=== PATIENT | male | born 1980 | race Caucasian/White ===

== ENCOUNTER 2023-04-08 09:43 | Emergency (ER) | payer SELFPAY ==
[2023-04-08] MEDS ORDERED: Metoclopramide 10 MG/2 ML SDV IVPUSH ONE (10:07)
[2023-04-08] MEDS ORDERED: Dextrose 5%-0.9% NaCl 1,000 ML IV SCH (10:15)
[2023-04-08] MEDS ORDERED: Ketorolac 30 MG/ML SDV IVPUSH SCH (10:15)
[2023-04-08] MEDS ORDERED: Acetaminophen 325 MG Tab PO ONE (10:24)
[2023-04-08 10:34] LABS: CORONAVIRUS COVID-19 NAA NEGATIVE (NEGATIVE); INFLUENZA A NAA NEGATIVE (NEGATIVE); RESPIRATORY SYNCYTIAL VIR NAA NEGATIVE (NEGATIVE)
[2023-04-08 10:35] LABS: BASOPHILS PERCENT AUTO 0.6 % (0.0-1.0); EOSINOPHILS ABSOLUTE AUTO 0.2 K/mm3 (0.0-0.4); EOSINOPHILS PERCENT AUTO 2.3 % (0.0-6.0); HEMATOCRIT 45.3 % (42.0-52.0); HEMOGLOBIN 15.2 gm/dl (14.0-18.0); IMMATURE GRAN ABSOLUTE AUTO 0.01 K/mm3 (0.00-0.05); IMMATURE GRAN PERCENT AUTO 0.1 % (0.0-0.4); LYMPHOCYTES ABSOLUTE AUTO 1.3 K/mm3 (1.0-4.8); MEAN CORPUSCULAR HEMOGLOBIN 30.3 pg (28.0-32.0); MEAN CORPUSCULAR HGB CONC 33.6 g/dl (32.0-36.0); MEAN CORPUSCULAR VOLUME 90.4 fl (83.0-99.0); MEAN PLATELET VOLUME 8.9 fl (9.4-12.4); MONOCYTES ABSOLUTE AUTO 0.5 K/mm3 (0.0-0.8); MONOCYTES PERCENT AUTO 7.7 % (0.0-8.0); NEUTROPHILS ABSOLUTE AUTO 4.8 K/mm3 (1.8-7.7); NEUTROPHILS PERCENT AUTO 70.3 % (41.0-71.0); PLATELET COUNT,PLT 246 K/mm3 (150-400); RED BLOOD CELL COUNT 5.01 M/mm3 (4.52-5.90); WHITE BLOOD CELL COUNT,WBC 6.88 K/mm3 (3.9-11.3)
[2023-04-08 10:57] LABS: A/G RATIO 1.1 (1-2); ALANINE AMINOTRANSFERASE,ALT 26 U/L (16-63); ALBUMIN 3.6 g/dl (3.4-5.0); ALKALINE PHOSPHATASE 58 U/L (46-116); ASPARTATE AMNIOTRANSFERASE,AST 22 U/L (15-37); BILIRUBIN TOTAL 0.5 mg/dL (0.2-1.0); BLOOD UREA NITROGEN,BUN 11 mg/dL (7-18); BUN/CREATININE RATIO 12.2 (14-18); C-REACTIVE PROTEIN <0.2 mg/dL (<1.0); CALCIUM 8.7 mg/dL (8.5-10.1); CARBON DIOXIDE,CO2 24 mEq/L (21-32); CHLORIDE,CL 107 mEq/L (98-107); CREATININE 0.9 mg/dL (0.7-1.3); EST CRCL DRUG DOSING (CG) 95.29 mL/min; ESTIMATED GFR 107 mL/min (>60); GLUCOSE RANDOM 117 mg/dL (70-99); MAGNESIUM 1.9 mg/dL (1.8-2.4); SODIUM,NA 141 mEq/L (136-145)
== END 2023-04-08 12:25 | disposition home or self-care (01) ==
LOC: JD.ED 09:43
DX: A08.4 Viral intestinal infection, unspecified (principal); J44.9 Chronic obstructive pulmonary disease, unspecified; F17.210 Nicotine dependence, cigarettes, uncomplicated
CPT/HCPCS: 0241U; 36415; 71045; 80053; 83605; 83735; 85025; 86140; 96361; 96374; 96375; 99284; A9270; J1885; J2765; J7042

== ENCOUNTER 2023-04-17 13:32 | Emergency (ER) | payer SELFPAY ==
[2023-04-17] MEDS: Sodium Chloride 0.9% 1,000 ML IV SCH (14:15)
[2023-04-17] MEDS: Sodium Chloride 0.9% 10 ML Syringe FLUSH PRN (14:15)
[2023-04-17 14:21] LABS: BASOPHILS ABSOLUTE AUTO 0.1 K/mm3 (0.0-0.2); BASOPHILS PERCENT AUTO 0.8 % (0.0-1.0); EOSINOPHILS PERCENT AUTO 0.3 % (0.0-6.0); HEMATOCRIT 45.1 % (42.0-52.0); HEMOGLOBIN 15.5 gm/dl (14.0-18.0); IMMATURE GRAN ABSOLUTE AUTO 0.02 K/mm3 (0.00-0.05); IMMATURE GRAN PERCENT AUTO 0.3 % (0.0-0.4); LYMPHOCYTES ABSOLUTE AUTO 1.5 K/mm3 (1.0-4.8); LYMPHOCYTES PERCENT AUTO 22.6 % (24.0-44.0); MEAN CORPUSCULAR HEMOGLOBIN 31.3 pg (28.0-32.0); MEAN CORPUSCULAR HGB CONC 34.4 g/dl (32.0-36.0); MEAN CORPUSCULAR VOLUME 91.1 fl (83.0-99.0); MEAN PLATELET VOLUME 8.6 fl (9.4-12.4); MONOCYTES ABSOLUTE AUTO 0.3 K/mm3 (0.0-0.8); MONOCYTES PERCENT AUTO 4.6 % (0.0-8.0); NEUTROPHILS ABSOLUTE AUTO 4.7 K/mm3 (1.8-7.7); NEUTROPHILS PERCENT AUTO 71.4 % (41.0-71.0); PLATELET COUNT,PLT 302 K/mm3 (150-400); RED BLOOD CELL COUNT 4.95 M/mm3 (4.52-5.90); WHITE BLOOD CELL COUNT,WBC 6.54 K/mm3 (3.9-11.3)
[2023-04-17 14:22] LABS: APPEARANCE,URINE CLEAR (Clear); BILIRUBIN,URINE NEGATIVE (Negative); COLOR,URINE LIGHT YELLOW (Yellow); GLUCOSE,URINE NEGATIVE (Negative); KETONES,URINE NEGATIVE (Negative); LEUKOCYTE ESTERASE,URINE NEGATIVE (Negative); NITRITE,URINE NEGATIVE (Negative); OCCULT BLOOD,URINE NEGATIVE (Negative); PROTEIN,URINE NEGATIVE (Negative); UROBILINOGEN,URINE 0.2 (0.2-1.0)
[2023-04-17] MEDS: Iopamidol 612 MG/ML 100 ML Bottle IVPUSH ONE (14:27)
[2023-04-17] MEDS: Sodium Chloride 0.9% 10 ML Syringe FLUSH ONE (14:27)
[2023-04-17 14:39] LABS: A/G RATIO 1.2 (1-2); ALANINE AMINOTRANSFERASE,ALT 25 U/L (16-63); ALBUMIN 4.1 g/dl (3.4-5.0); ALKALINE PHOSPHATASE 61 U/L (46-116); ANION GAP 14.9 (5-15); ASPARTATE AMNIOTRANSFERASE,AST 25 U/L (15-37); BILIRUBIN TOTAL 0.8 mg/dL (0.2-1.0); BLOOD UREA NITROGEN,BUN 12 mg/dL (7-18); C-REACTIVE PROTEIN <0.2 mg/dL (<1.0); CALCIUM 9.3 mg/dL (8.5-10.1); CARBON DIOXIDE,CO2 25 mEq/L (21-32); CHLORIDE,CL 102 mEq/L (98-107); EST CRCL DRUG DOSING (CG) 85.58 mL/min; ESTIMATED GFR 95 mL/min (>60); GLUCOSE RANDOM 99 mg/dL (70-99); POTASSIUM,K 3.9 mEq/L (3.5-5.1); PROTEIN TOTAL,TP 7.5 g/dl (6.4-8.2); SODIUM,NA 138 mEq/L (136-145)
== END 2023-04-17 15:39 | disposition home or self-care (01) ==
LOC: JD.ED 13:32
DX: R10.30 Lower abdominal pain, unspecified (principal); J44.9 Chronic obstructive pulmonary disease, unspecified; F17.210 Nicotine dependence, cigarettes, uncomplicated
CPT/HCPCS: 36415; 51798; 74177; 80053; 81003; 83735; 85025; 86140; 93005; 96360; 99284; J3490; J7030; Q9967; 93010

== ENCOUNTER 2023-04-29 08:28 | Emergency (ER) | payer SELFPAY ==
[2023-04-29 09:12] LABS: BASOPHILS PERCENT AUTO 0.3 % (0.0-1.0); EOSINOPHILS ABSOLUTE AUTO 0.2 K/mm3 (0.0-0.4); EOSINOPHILS PERCENT AUTO 1.6 % (0.0-6.0); HEMATOCRIT 42.9 % (42.0-52.0); HEMOGLOBIN 14.6 gm/dl (14.0-18.0); IMMATURE GRAN ABSOLUTE AUTO 0.06 K/mm3 (0.00-0.05); IMMATURE GRAN PERCENT AUTO 0.4 % (0.0-0.4); LYMPHOCYTES ABSOLUTE AUTO 1.2 K/mm3 (1.0-4.8); LYMPHOCYTES PERCENT AUTO 7.9 % (24.0-44.0); MEAN CORPUSCULAR HEMOGLOBIN 31.6 pg (28.0-32.0); MEAN CORPUSCULAR VOLUME 92.9 fl (83.0-99.0); MEAN PLATELET VOLUME 8.7 fl (9.4-12.4); MONOCYTES ABSOLUTE AUTO 1.2 K/mm3 (0.0-0.8); NEUTROPHILS ABSOLUTE AUTO 11.9 K/mm3 (1.8-7.7); NEUTROPHILS PERCENT AUTO 81.8 % (41.0-71.0); PLATELET COUNT,PLT 235 K/mm3 (150-400); RED BLOOD CELL COUNT 4.62 M/mm3 (4.52-5.90); WHITE BLOOD CELL COUNT,WBC 14.55 K/mm3 (3.9-11.3)
[2023-04-29] MEDS: Sodium Chloride 0.9% 1,000 ML IV SCH (09:23)
[2023-04-29] MEDS: Ondansetron 4 MG/2 ML SDV IVPUSH ONE (09:23)
[2023-04-29] MEDS: Sodium Chloride 0.9% 10 ML Syringe FLUSH PRN (09:24)
[2023-04-29 09:36] LABS: A/G RATIO 1.2 (1-2); ALBUMIN 3.7 g/dl (3.4-5.0); ANION GAP 13.4 (5-15); BILIRUBIN TOTAL 0.6 mg/dL (0.2-1.0); BUN/CREATININE RATIO 17.8 (14-18); CALCIUM 8.7 mg/dL (8.5-10.1); CREATININE 0.9 mg/dL (0.7-1.3); EST CRCL DRUG DOSING (CG) 94.43 mL/min; POTASSIUM,K 4.4 mEq/L (3.5-5.1); PROTEIN TOTAL,TP 6.9 g/dl (6.4-8.2)
[2023-04-29 10:35] LABS: APPEARANCE,URINE SLT CLOUDY (Clear); BILIRUBIN,URINE NEGATIVE (Negative); COLOR,URINE YELLOW (Yellow); GLUCOSE,URINE NEGATIVE (Negative); KETONES,URINE NEGATIVE (Negative); LEUKOCYTE ESTERASE,URINE 1+ (Negative); NITRITE,URINE POSITIVE (Negative); OCCULT BLOOD,URINE 2+ (Negative); PH,URINE 6.5 (5.0-8.0); PROTEIN,URINE 1+ (Negative); UROBILINOGEN,URINE 0.2 (0.2-1.0)
[2023-04-29 10:52] LABS: WBC CLUMPS,URINE FEW /hpf (NOT SEEN)
[2023-04-29 10:53] LABS: BACTERIA,URINE MANY /hpf (FEW); EPITHELIAL CELLS,URINE NOT SEEN /hpf (0-5); MUCUS,URINE RARE /hpf (FEW)
[2023-04-29] MEDS: Phenazopyridine 95 MG Tab PO ONE (11:22)
[2023-04-29] MEDS: cefTRIAXone 1 GM in Sodium Chloride 0.9% 100 ML IV ONE (11:23)
== END 2023-04-29 12:00 | disposition home or self-care (01) ==
LOC: JD.ED 08:28
DX: N39.0 Urinary tract infection, site not specified (principal); J44.9 Chronic obstructive pulmonary disease, unspecified; F17.210 Nicotine dependence, cigarettes, uncomplicated; Z79.899 Other long term (current) drug therapy
CPT/HCPCS: 36415; 74176; 80053; 81001; 83690; 85025; 96361; 96365; 96375; 99285; A9270; J0696; J2405; J3490; J7030

== ENCOUNTER 2023-05-03 20:00 | Emergency (ER) | payer SELFPAY ==
[2023-05-03 20:50] LABS: APPEARANCE,URINE CLEAR (Clear); BILIRUBIN,URINE NEGATIVE (Negative); COLOR,URINE YELLOW (Yellow); GLUCOSE,URINE NEGATIVE (Negative); KETONES,URINE NEGATIVE (Negative); LEUKOCYTE ESTERASE,URINE TRACE (Negative); NITRITE,URINE NEGATIVE (Negative); OCCULT BLOOD,URINE 3+ (Negative); PH,URINE 6.5 (5.0-8.0); PROTEIN,URINE 1+ (Negative); UROBILINOGEN,URINE 0.2 (0.2-1.0)
[2023-05-03 21:19] LABS: AMORPHOUS SEDIMENT,URINE RARE /hpf (NOT SEEN); BACTERIA,URINE FEW /hpf (FEW); EPITHELIAL CELLS,URINE NOT SEEN /hpf (0-5); MUCUS,URINE NOT SEEN /hpf (FEW); RBC,URINE 20-30 /hpf (0-5); WBC,URINE 0-5 /hpf (0-5)
== END 2023-05-03 22:40 | disposition home or self-care (01) ==
LOC: JD.ED 20:00
DX: T83.031A Leakage of indwelling urethral catheter, initial encounter (principal); J44.9 Chronic obstructive pulmonary disease, unspecified; F17.210 Nicotine dependence, cigarettes, uncomplicated
CPT/HCPCS: 51702; 81001; 99283

== ENCOUNTER 2023-07-03 05:45 | Emergency (ER) | payer MEDICAID ==
[2023-07-03] MEDS: Sodium Chloride 0.9% 1,000 ML IV STA (06:27)
[2023-07-03] MEDS: Ondansetron 4 MG/2 ML SDV IVPUSH ONE (06:27)
[2023-07-03] MEDS: HYDROmorphone 0.5 MG/0.5 ML Syringe IVPUSH ONE (06:27)
[2023-07-03] MEDS: Sodium Chloride 0.9% 10 ML Syringe FLUSH PRN (06:27)
[2023-07-03 06:29] LABS: BASOPHILS ABSOLUTE AUTO 0.1 K/mm3 (0.0-0.2); BASOPHILS PERCENT AUTO 0.7 % (0.0-1.0); EOSINOPHILS ABSOLUTE AUTO 0.2 K/mm3 (0.0-0.4); EOSINOPHILS PERCENT AUTO 2.2 % (0.0-6.0); HEMATOCRIT 48.3 % (42.0-52.0); HEMOGLOBIN 16.2 gm/dl (14.0-18.0); IMMATURE GRAN ABSOLUTE AUTO 0.04 K/mm3 (0.00-0.05); IMMATURE GRAN PERCENT AUTO 0.6 % (0.0-0.4); LYMPHOCYTES ABSOLUTE AUTO 1.6 K/mm3 (1.0-4.8); MEAN CORPUSCULAR HEMOGLOBIN 30.7 pg (28.0-32.0); MEAN CORPUSCULAR HGB CONC 33.5 g/dl (32.0-36.0); MEAN CORPUSCULAR VOLUME 91.7 fl (83.0-99.0); MEAN PLATELET VOLUME 8.8 fl (9.4-12.4); MONOCYTES ABSOLUTE AUTO 0.7 K/mm3 (0.0-0.8); MONOCYTES PERCENT AUTO 9.5 % (0.0-8.0); NEUTROPHILS ABSOLUTE AUTO 4.3 K/mm3 (1.8-7.7); PLATELET COUNT,PLT 325 K/mm3 (150-400); RED BLOOD CELL COUNT 5.27 M/mm3 (4.52-5.90); WHITE BLOOD CELL COUNT,WBC 6.84 K/mm3 (3.9-11.3)
[2023-07-03 06:30] LABS: APPEARANCE,URINE CLEAR (Clear); BILIRUBIN,URINE NEGATIVE (Negative); COLOR,URINE YELLOW (Yellow); GLUCOSE,URINE NEGATIVE (Negative); KETONES,URINE NEGATIVE (Negative); LEUKOCYTE ESTERASE,URINE NEGATIVE (Negative); NITRITE,URINE NEGATIVE (Negative); OCCULT BLOOD,URINE NEGATIVE (Negative); PROTEIN,URINE NEGATIVE (Negative); UROBILINOGEN,URINE 0.2 (0.2-1.0)
[2023-07-03 06:38] LABS: ALBUMIN 3.8 g/dl (3.4-5.0); ANION GAP 10.1 (5-15); BILIRUBIN TOTAL 0.4 mg/dL (0.2-1.0); CALCIUM 8.9 mg/dL (8.5-10.1); EST CRCL DRUG DOSING (CG) 95.52 mL/min; POTASSIUM,K 4.1 mEq/L (3.5-5.1); PROTEIN TOTAL,TP 7.5 g/dl (6.4-8.2)
[2023-07-03 06:39] LABS: BACTERIA,URINE NOT SEEN /hpf (FEW); EPITHELIAL CELLS,URINE NOT SEEN /hpf (0-5); MUCUS,URINE NOT SEEN /hpf (FEW); RBC,URINE 0-5 /hpf (0-5); WBC,URINE 0-5 /hpf (0-5)
[2023-07-03] MEDS: Iopamidol 612 MG/ML 100 ML Bottle IVPUSH ONE (06:42)
== END 2023-07-03 07:16 | disposition home or self-care (01) ==
LOC: JD.ED 05:45
DX: R10.31 Right lower quadrant pain (principal); J44.9 Chronic obstructive pulmonary disease, unspecified; F17.210 Nicotine dependence, cigarettes, uncomplicated; Z79.899 Other long term (current) drug therapy
CPT/HCPCS: 36415; 74177; 80053; 81001; 83690; 85025; 96374; 96375; 99284; J1170; J2405; J3490; J7030; Q9967

== ENCOUNTER 2023-07-30 09:07 | Emergency (ER) | payer MEDICAID, OTHER ==
[2023-07-30 10:05] LABS: BASOPHILS PERCENT AUTO 0.7 % (0.0-1.0); EOSINOPHILS ABSOLUTE AUTO 0.1 K/mm3 (0.0-0.4); EOSINOPHILS PERCENT AUTO 1.3 % (0.0-6.0); HEMATOCRIT 45.9 % (42.0-52.0); HEMOGLOBIN 15.9 gm/dl (14.0-18.0); IMMATURE GRAN ABSOLUTE AUTO 0.02 K/mm3 (0.00-0.05); IMMATURE GRAN PERCENT AUTO 0.3 % (0.0-0.4); LYMPHOCYTES ABSOLUTE AUTO 1.5 K/mm3 (1.0-4.8); LYMPHOCYTES PERCENT AUTO 24.9 % (24.0-44.0); MEAN CORPUSCULAR HEMOGLOBIN 30.7 pg (28.0-32.0); MEAN CORPUSCULAR HGB CONC 34.6 g/dl (32.0-36.0); MONOCYTES ABSOLUTE AUTO 0.5 K/mm3 (0.0-0.8); MONOCYTES PERCENT AUTO 8.1 % (0.0-8.0); NEUTROPHILS PERCENT AUTO 64.7 % (41.0-71.0); PLATELET COUNT,PLT 258 K/mm3 (150-400); RED BLOOD CELL COUNT 5.18 M/mm3 (4.52-5.90); WHITE BLOOD CELL COUNT,WBC 6.14 K/mm3 (3.9-11.3)
[2023-07-30 10:09] LABS: MEAN CORPUSCULAR VOLUME 88.6 fl (83.0-99.0)
[2023-07-30] MEDS: Albuterol/Ipratropium 3.0-0.5 MG/3 ML Neb Soln NEB ONE (10:18)
[2023-07-30 10:29] LABS: APPEARANCE,URINE CLEAR (Clear); BILIRUBIN,URINE NEGATIVE (Negative); COLOR,URINE YELLOW (Yellow); GLUCOSE,URINE NEGATIVE (Negative); KETONES,URINE NEGATIVE (Negative); LEUKOCYTE ESTERASE,URINE NEGATIVE (Negative); NITRITE,URINE NEGATIVE (Negative); OCCULT BLOOD,URINE NEGATIVE (Negative); PH,URINE 7.5 (5.0-8.0); PROTEIN,URINE NEGATIVE (Negative); UROBILINOGEN,URINE 0.2 (0.2-1.0)
[2023-07-30 10:48] LABS: INR 1.11; PROTHROMBIN TIME 11.8 SECONDS (9.7-12.0)
[2023-07-30 10:49] LABS: D-DIMER QUANTITATIVE 0.21 mg/L (0.19-0.50)
[2023-07-30 11:01] LABS: A/G RATIO 1.1 (1-2); ALANINE AMINOTRANSFERASE,ALT 26 U/L (16-63); ALKALINE PHOSPHATASE 74 U/L (46-116); ANION GAP 15.2 (5-15); ASPARTATE AMNIOTRANSFERASE,AST 28 U/L (15-37); BILIRUBIN TOTAL 0.5 mg/dL (0.2-1.0); BLOOD UREA NITROGEN,BUN 15 mg/dL (7-18); CALCIUM 9.5 mg/dL (8.5-10.1); CARBON DIOXIDE,CO2 24 mEq/L (21-32); CHLORIDE,CL 103 mEq/L (98-107); EST CRCL DRUG DOSING (CG) 95.22 mL/min; ESTIMATED GFR 95 mL/min (>60); GLUCOSE RANDOM 97 mg/dL (70-99); MAGNESIUM 1.9 mg/dL (1.8-2.4); PHOSPHORUS 2.3 mg/dL (2.6-4.7); POTASSIUM,K 4.2 mEq/L (3.5-5.1); PROTEIN TOTAL,TP 7.5 g/dl (6.4-8.2); SODIUM,NA 138 mEq/L (136-145)
[2023-07-30 11:07] LABS: TROPONIN I HIGH SENSITIVITY < 4 pg/mL (<=76)
[2023-07-30 11:08] LABS: CORONAVIRUS COVID-19 NAA NEGATIVE (NEGATIVE); INFLUENZA A NAA NEGATIVE (NEGATIVE); RESPIRATORY SYNCYTIAL VIR NAA NEGATIVE (NEGATIVE)
[2023-07-30] MEDS: cefTRIAXone 1 GM in Sodium Chloride 0.9% 100 ML IV ONE (11:32)
[2023-07-30] MEDS: methylPREDNISolone Sodium Succinate 125 MG/2 ML SDV IVPUSH ONE (11:32)
[2023-07-30] MEDS: Ondansetron 4 MG/2 ML SDV IVPUSH ONE (11:33)
[2023-07-30] MEDS: Ondansetron 4 MG Tab.DIS PO ONE (12:01)
== END 2023-07-30 13:42 | disposition home or self-care (01) ==
LOC: JD.ED 09:07
DX: J69.0 Pneumonitis due to inhalation of food and vomit (principal); J44.9 Chronic obstructive pulmonary disease, unspecified; F17.210 Nicotine dependence, cigarettes, uncomplicated; Z79.51 Long term (current) use of inhaled steroids; Z79.899 Other long term (current) drug therapy
CPT/HCPCS: 0241U; 36415; 71045; 80053; 81003; 83735; 83880; 84100; 84484; 85025; 85379; 85610; 93005; 94640; 96374; 96375; 99285; J0696; J2930; J3490; J7620-GY

== ENCOUNTER 2023-08-13 05:29 | Emergency (ER) | payer MEDICAID ==
[2023-08-13 05:57] LABS: BASOPHILS ABSOLUTE AUTO 0.1 K/mm3 (0.0-0.2); BASOPHILS PERCENT AUTO 0.9 % (0.0-1.0); EOSINOPHILS ABSOLUTE AUTO 0.3 K/mm3 (0.0-0.4); EOSINOPHILS PERCENT AUTO 4.7 % (0.0-6.0); HEMATOCRIT 46.9 % (42.0-52.0); HEMOGLOBIN 16.2 gm/dl (14.0-18.0); IMMATURE GRAN ABSOLUTE AUTO 0.03 K/mm3 (0.00-0.05); IMMATURE GRAN PERCENT AUTO 0.4 % (0.0-0.4); LYMPHOCYTES ABSOLUTE AUTO 1.8 K/mm3 (1.0-4.8); LYMPHOCYTES PERCENT AUTO 25.8 % (24.0-44.0); MEAN CORPUSCULAR HEMOGLOBIN 30.8 pg (28.0-32.0); MEAN CORPUSCULAR HGB CONC 34.5 g/dl (32.0-36.0); MEAN CORPUSCULAR VOLUME 89.2 fl (83.0-99.0); MEAN PLATELET VOLUME 9.2 fl (9.4-12.4); MONOCYTES ABSOLUTE AUTO 0.4 K/mm3 (0.0-0.8); MONOCYTES PERCENT AUTO 5.9 % (0.0-8.0); NEUTROPHILS ABSOLUTE AUTO 4.4 K/mm3 (1.8-7.7); NEUTROPHILS PERCENT AUTO 62.3 % (41.0-71.0); PLATELET COUNT,PLT 262 K/mm3 (150-400); RED BLOOD CELL COUNT 5.26 M/mm3 (4.52-5.90); WHITE BLOOD CELL COUNT,WBC 6.98 K/mm3 (3.9-11.3)
[2023-08-13] MEDS: Alum Hydrox/Mag Hydrox/Simeth 30 ML, Lidocaine 2% 15 ML PO ONE (06:00)
[2023-08-13] MEDS: Ondansetron 4 MG Tab.DIS PO ONE (06:01)
[2023-08-13 06:23] LABS: INR 1.07; PROTHROMBIN TIME 11.4 SECONDS (9.7-12.0)
[2023-08-13 06:25] LABS: PTT,PARTIAL THROMBOPLSTIN TIME 29.4 SECONDS (21.7-31.4)
[2023-08-13 06:28] LABS: D-DIMER QUANTITATIVE < 0.19 mg/L (0.19-0.50)
[2023-08-13 06:33] LABS: A/G RATIO 1.2 (1-2); ALBUMIN 3.8 g/dl (3.4-5.0); ANION GAP 14.7 (5-15); BILIRUBIN TOTAL 0.4 mg/dL (0.2-1.0); BUN/CREATININE RATIO 10.8 (14-18); CALCIUM 8.8 mg/dL (8.5-10.1); CREATININE 1.2 mg/dL (0.7-1.3); EST CRCL DRUG DOSING (CG) 79.8 mL/min; POTASSIUM,K 3.7 mEq/L (3.5-5.1); PROTEIN TOTAL,TP 7.1 g/dl (6.4-8.2)
== END 2023-08-13 06:52 | disposition home or self-care (01) ==
LOC: JD.ED 05:29
DX: R07.89 Other chest pain (principal); J44.9 Chronic obstructive pulmonary disease, unspecified; Z79.899 Other long term (current) drug therapy
CPT/HCPCS: 36415; 71045; 80053; 83690; 83880; 84484; 85025; 85379; 85610; 85730; 93005; 99285; A9270; 93010; 99283

== ENCOUNTER 2023-11-02 18:30 | Emergency (ER) | payer SELFPAY ==
[2023-11-02 20:00] LABS: BASOPHILS ABSOLUTE AUTO 0.1 K/mm3 (0.0-0.2); BASOPHILS PERCENT AUTO 0.7 % (0.0-1.0); EOSINOPHILS ABSOLUTE AUTO 0.3 K/mm3 (0.0-0.4); EOSINOPHILS PERCENT AUTO 2.9 % (0.0-6.0); HEMATOCRIT 45.8 % (42.0-52.0); HEMOGLOBIN 15.6 gm/dl (14.0-18.0); IMMATURE GRAN ABSOLUTE AUTO 0.02 K/mm3 (0.00-0.05); IMMATURE GRAN PERCENT AUTO 0.2 % (0.0-0.4); LYMPHOCYTES ABSOLUTE AUTO 2.9 K/mm3 (1.0-4.8); LYMPHOCYTES PERCENT AUTO 33.7 % (24.0-44.0); MEAN CORPUSCULAR HEMOGLOBIN 31.1 pg (28.0-32.0); MEAN CORPUSCULAR HGB CONC 34.1 g/dl (32.0-36.0); MEAN CORPUSCULAR VOLUME 91.4 fl (83.0-99.0); MEAN PLATELET VOLUME 8.8 fl (9.4-12.4); MONOCYTES ABSOLUTE AUTO 0.8 K/mm3 (0.0-0.8); NEUTROPHILS ABSOLUTE AUTO 4.6 K/mm3 (1.8-7.7); NEUTROPHILS PERCENT AUTO 53.5 % (41.0-71.0); PLATELET COUNT,PLT 287 K/mm3 (150-400); RED BLOOD CELL COUNT 5.01 M/mm3 (4.52-5.90); WHITE BLOOD CELL COUNT,WBC 8.55 K/mm3 (3.9-11.3)
[2023-11-02 20:23] LABS: A/G RATIO 1.2 (1-2); ANION GAP 14.6 (5-15); BILIRUBIN TOTAL 0.4 mg/dL (0.2-1.0); BUN/CREATININE RATIO 9.1 (14-18); CREATININE 1.1 mg/dL (0.7-1.3); EST CRCL DRUG DOSING (CG) 87.68 mL/min; MAGNESIUM 1.9 mg/dL (1.8-2.4); POTASSIUM,K 3.6 mEq/L (3.5-5.1); PROTEIN TOTAL,TP 7.3 g/dl (6.4-8.2)
== END 2023-11-02 21:08 | disposition home or self-care (01) ==
LOC: JD.ED 18:30
DX: S06.0X0A Concussion without loss of consciousness, initial encounter (principal); J44.9 Chronic obstructive pulmonary disease, unspecified; F17.210 Nicotine dependence, cigarettes, uncomplicated; Z79.899 Other long term (current) drug therapy; W18.11XA Fall from or off toilet without subsequent striking against object, initial encounter
CPT/HCPCS: 36415; 70450; 70450-26; 80053; 83735; 85025; 99284

== ENCOUNTER 2024-05-23 12:13 | Emergency (ER) | payer MEDICAID, OTHER ==
[2024-05-23 13:29] LABS: BARBITURATE SCREEN,URINE NEGATIVE (CUTOFF=200); BENZODIAZEPINES SCREEN,URINE NEGATIVE (CUTOFF=150); BUPRENORPHINE SCREEN,URINE NEGATIVE (CUTOFF=10); METHADONE SCREEN, URINE NEGATIVE (CUT0FF=200); METHAMPHETAMINES SCREEN, URINE NEGATIVE (CUTOFF=500); OXYCODONE SCREEN,URINE NEGATIVE (CUT0FF=100); THC SCREEN,URINE 20 NG/ML NEGATIVE (CUTOFF=50)
[2024-05-23 13:34] LABS: AMPHETAMINES SCREEN, URINE NEGATIVE (CUTOFF=500)
[2024-05-23 13:52] LABS: HEMATOCRIT 48.5 % (42.0-52.0); HEMOGLOBIN 16.5 gm/dl (14.0-18.0); MEAN CORPUSCULAR HEMOGLOBIN 30.8 pg (28.0-32.0); MEAN CORPUSCULAR VOLUME 90.5 fl (83.0-99.0); PLATELET COUNT,PLT 273 K/mm3 (150-400); RED BLOOD CELL COUNT 5.36 M/mm3 (4.52-5.90); WHITE BLOOD CELL COUNT,WBC 7.95 K/mm3 (3.9-11.3)
[2024-05-23 14:18] LABS: BAND PERCENT MAN 0 % (0-10); BASOPHILS PERCENT MAN 1 (0.2-1.2); EOSINOPHILS PERCENT MAN 0 % (0.8-7.0); LYMPHOCYTES % ATYPICAL MANUAL 0 %; LYMPHOCYTES PERCENT MAN 20 % (20-40); MONOCYTES PERCENT MAN 5 % (2-10)
[2024-05-23 14:19] LABS: PLATELET COUNT ESTIMATE ADEQUATE
[2024-05-23 14:21] LABS: A/G RATIO 1.2 (1-2); ALBUMIN 4.2 g/dl (3.4-5.0); ANION GAP 14.1 (5-15); BILIRUBIN TOTAL 0.5 mg/dL (0.2-1.0); CALCIUM 9.2 mg/dL (8.5-10.1); EST CRCL DRUG DOSING (CG) 91.39 mL/min; POTASSIUM,K 4.1 mEq/L (3.5-5.1); PROTEIN TOTAL,TP 7.6 g/dl (6.4-8.2); TSH 2.465 uIU/mL (0.358-3.74)
[2024-05-23] MEDS: LORazepam 1 MG Tab PO ONE (18:23)
== END 2024-05-24 00:40 ==
LOC: JD.ED 12:13
DX: F41.9 Anxiety disorder, unspecified (principal); F32.A Depression, unspecified; F20.9 Schizophrenia, unspecified; R45.851 Suicidal ideations; Z79.899 Other long term (current) drug therapy
CPT/HCPCS: 36415; 80053; 80143; 80179; 80306; 80307; 84443; 85007; 85027; 93005; 99285; A9270; 93010

== ENCOUNTER 2024-12-25 10:21 | Emergency (ER) | payer MEDICAID, OTHER ==
[2024-12-25] MEDS ORDERED: Sodium Chloride 0.9% 10 ML Syringe FLUSH PRN (10:36)
[2024-12-25 11:04] LABS: BASOPHILS ABSOLUTE AUTO 0.1 K/mm3 (0.0-0.2); BASOPHILS PERCENT AUTO 0.8 % (0.0-1.0); EOSINOPHILS ABSOLUTE AUTO 0.0 K/mm3 (0.0-0.4); EOSINOPHILS PERCENT AUTO 0.6 % (0.0-6.0); IMMATURE GRAN ABSOLUTE AUTO 0.03 K/mm3 (0.00-0.05); IMMATURE GRAN PERCENT AUTO 0.5 % (0.0-0.4); LYMPHOCYTES ABSOLUTE AUTO 1.3 K/mm3 (1.0-4.8); LYMPHOCYTES PERCENT AUTO 20.6 % (24.0-44.0); MEAN PLATELET VOLUME 9.0 fl (9.4-12.4); MONOCYTES ABSOLUTE AUTO 0.4 K/mm3 (0.0-0.8); MONOCYTES PERCENT AUTO 6.7 % (0.0-8.0); NEUTROPHILS ABSOLUTE AUTO 4.5 K/mm3 (1.8-7.7); NEUTROPHILS PERCENT AUTO 70.8 % (41.0-71.0); NRBC ABSOLUTE 0.00 (0.00-0.02); NRBC PERCENT 0.0 % (0.0-0.2); PLATELET COUNT,PLT 274 K/mm3 (150-400); RED BLOOD CELL COUNT 5.21 M/mm3 (4.52-5.90); WHITE BLOOD CELL COUNT,WBC 6.30 K/mm3 (3.9-11.3)
[2024-12-25 11:30] LABS: A/G RATIO 1.1 (1-2); ALANINE AMINOTRANSFERASE,ALT 30 U/L (16-63); ASPARTATE AMNIOTRANSFERASE,AST 23 U/L (15-37); BILIRUBIN TOTAL 0.3 mg/dL (0.2-1.0); BLOOD UREA NITROGEN,BUN 17 mg/dL (7-18); CARBON DIOXIDE,CO2 27 mEq/L (21-32); CHLORIDE,CL 106 mEq/L (98-107); CREATININE 1.1 mg/dL (0.7-1.3); EST CRCL DRUG DOSING (CG) 90.98 mL/min; ESTIMATED GFR 84 mL/min (>60); GLUCOSE RANDOM 95 mg/dL (70-99); POTASSIUM,K 4.5 mEq/L (3.5-5.1); PROTEIN TOTAL,TP 7.5 g/dl (6.4-8.2); SODIUM,NA 141 mEq/L (136-145); TROPONIN I HIGH SENSITIVITY 5 pg/mL (<=76)
[2024-12-25] MEDS: Ketorolac 30 MG/ML SDV IVPUSH ONE (12:50)
[2024-12-25] MEDS: Alum Hydrox/Mag Hydrox/Simeth 30 ML, Lidocaine 2% 15 ML PO ONE (12:51)
== END 2024-12-25 15:45 | disposition home or self-care (01) ==
LOC: JD.ED 10:21
DX: R07.89 Other chest pain (principal); R42 Dizziness and giddiness; J44.9 Chronic obstructive pulmonary disease, unspecified; Z79.899 Other long term (current) drug therapy
CPT/HCPCS: 36415; 70450; 71045; 76705; 80053; 83735; 84484; 85025; 85379; 86140; 93005; 96374; 96375; 99285; A9270; J1308; J1885; J3490; 93010; 99284

== ENCOUNTER 2025-01-03 08:43 | Emergency (ER) | payer OTHER, MEDICAID ==
[2025-01-03] MEDS ORDERED: Sodium Chloride 0.9% 10 ML Syringe FLUSH PRN (09:11)
[2025-01-03] MEDS: Alum Hydrox/Mag Hydrox/Simeth 30 ML, Lidocaine 2% 15 ML PO ONE (09:35)
[2025-01-03 09:41] LABS: BASOPHILS ABSOLUTE AUTO 0.1 K/mm3 (0.0-0.2); BASOPHILS PERCENT AUTO 0.8 % (0.0-1.0); EOSINOPHILS ABSOLUTE AUTO 0.1 K/mm3 (0.0-0.4); EOSINOPHILS PERCENT AUTO 1.1 % (0.0-6.0); IMMATURE GRAN ABSOLUTE AUTO 0.02 K/mm3 (0.00-0.05); IMMATURE GRAN PERCENT AUTO 0.3 % (0.0-0.4); LYMPHOCYTES ABSOLUTE AUTO 1.4 K/mm3 (1.0-4.8); LYMPHOCYTES PERCENT AUTO 21.4 % (24.0-44.0); MEAN PLATELET VOLUME 9.0 fl (9.4-12.4); MONOCYTES ABSOLUTE AUTO 0.6 K/mm3 (0.0-0.8); MONOCYTES PERCENT AUTO 9.0 % (0.0-8.0); NEUTROPHILS ABSOLUTE AUTO 4.5 K/mm3 (1.8-7.7); NEUTROPHILS PERCENT AUTO 67.4 % (41.0-71.0); NRBC ABSOLUTE 0.00 (0.00-0.02); NRBC PERCENT 0.0 % (0.0-0.2); PLATELET COUNT,PLT 279 K/mm3 (150-400); RED BLOOD CELL COUNT 5.29 M/mm3 (4.52-5.90); WHITE BLOOD CELL COUNT,WBC 6.65 K/mm3 (3.9-11.3)
[2025-01-03 10:18] LABS: A/G RATIO 1.1 (1-2); ALANINE AMINOTRANSFERASE,ALT 20 U/L (16-63); ASPARTATE AMNIOTRANSFERASE,AST 19 U/L (15-37); BILIRUBIN TOTAL 0.7 mg/dL (0.2-1.0); BLOOD UREA NITROGEN,BUN 15 mg/dL (7-18); CARBON DIOXIDE,CO2 26 mEq/L (21-32); CHLORIDE,CL 106 mEq/L (98-107); CREATININE 1.1 mg/dL (0.7-1.3); EST CRCL DRUG DOSING (CG) 89.37 mL/min; ESTIMATED GFR 84 mL/min (>60); GLUCOSE RANDOM 100 mg/dL (70-99); POTASSIUM,K 4.1 mEq/L (3.5-5.1); PROTEIN TOTAL,TP 7.5 g/dl (6.4-8.2); SODIUM,NA 140 mEq/L (136-145); TROPONIN I HIGH SENSITIVITY < 4 pg/mL (<=76)
[2025-01-03 10:44] LABS: BUPRENORPHINE SCREEN,URINE NEGATIVE (CUTOFF=10); METHADONE SCREEN, URINE NEGATIVE (CUT0FF=200); METHAMPHETAMINES SCREEN, URINE NEGATIVE (CUTOFF=500); OXYCODONE SCREEN,URINE NEGATIVE (CUT0FF=100); THC SCREEN,URINE 20 NG/ML NEGATIVE (CUTOFF=50)
[2025-01-03 10:50] LABS: AMPHETAMINES SCREEN, URINE NEGATIVE (CUTOFF=500)
== END 2025-01-03 13:38 | disposition home or self-care (01) ==
LOC: JD.ED 08:43
DX: R07.9 Chest pain, unspecified (principal); I10 Essential (primary) hypertension; J44.9 Chronic obstructive pulmonary disease, unspecified; M19.90 Unspecified osteoarthritis, unspecified site; Z79.899 Other long term (current) drug therapy; Z87.891 Personal history of nicotine dependence
CPT/HCPCS: 36415; 71045; 80053; 80306; 83690; 84484; 85025; 93005; 99285; A9270; J3490; 93010; 99284